=== PATIENT | female | born 1975 | race Two or more races ===

== ENCOUNTER 2018-08-26 22:26 | Inpatient (IN) | payer MEDICAID, OTHER ==
[~2018-08-26] VITALS: Ht 157.5 cm; Wt 85.6 kg
[~2018-08-26 22:26] MED LIST: GLIM1TAB2 PO; LEVO50TA5 PO; LOVA20TA2 PO; METF10002 PO
--- NOTE | 2018-08-26 23:06 | NUR ---
assessment made. ERP at bedside.
[2018-08-26] MEDS ORDERED: MORPHINE SULFATE 4 MG/ML, 1ML IVPush PRN (23:30)
[2018-08-26] MEDS ORDERED: ONDANSETRON 2MG/ML, 2ML IVPush ONE (23:30)
[2018-08-26] MEDS ORDERED: SODIUM CHLORIDE 0.9% 1,000ML IVBOLUS ONE (23:30)
[2018-08-26] MEDS ORDERED: SODIUM CHLORIDE FLUSH 10ML SYR IVF ONE (23:30)
[2018-08-26] MEDS ORDERED: MORPHINE SULFATE 4 MG/ML, 1ML ONE (23:37)
[2018-08-26] MEDS ORDERED: ONDANSETRON 2MG/ML, 2ML ONE (23:37)
[2018-08-27] LABS: BASOPHILS # (AUTO) 0.03 x10^3/uL (0-0.1); BASOPHILS % (AUTO) 0 % (0-1); EOSINOPHILS # (AUTO) 0.21 x10^3/uL (0-0.4); EOSINOPHILS % (AUTO) 3 % (1-7); LYMPHOCYTES # (AUTO) 2.53 x10^3/uL (1-3.4); LYMPHOCYTES % (AUTO) 37 % (22-44); MD NO; MEAN CORPUSCULAR HEMOGLOBIN 32.2 pg (27.0-34.8); MEAN CORPUSCULAR HGB CONC 34.9 g/dL (32.4-35.8); MEAN CORPUSCULAR VOLUME 92.3 fL (80-100); MEAN PLATELET VOLUME 9.1 fL (7.4-10.4); MONOCYTES # (AUTO) 0.35 x10^3/uL (0.2-0.8); MONOCYTES % (AUTO) 5 % (2-9); NEUTROPHILS # (AUTO) 3.73 x10^3/uL (1.8-6.8); NEUTROPHILS % (AUTO) 54 % (42-75); PLATELET COUNT 349 x10^3/uL (130-400); RED BLOOD COUNT 4.61 x10^6/uL (3.82-5.3); RED CELL DISTRIBUTION WIDTH 12.8 % (9.6-15.2)
--- NOTE | 2018-08-27 | NUR ---
IV Placed. blood drawn, urine sample obtained and sent to lab. medicated for pain and nausea. IVF hung.
[2018-08-27 00:06] LABS: MICROSCOPIC NOT IND
[2018-08-27 00:07] LABS: ALANINE AMINOTRANSFERASE 21 U/L (12-78); ALBUMIN 3.6 g/dL (3.4-5.0); ANION GAP 11 mmol/L (5-15); CALCIUM 8.5 mg/dL (8.5-10.1); CHLORIDE 102 mmol/L (98-107)
[2018-08-27 00:09] LABS: CULTURE INDICATED? NO
[2018-08-27 00:10] LABS: ALKALINE PHOSPHATASE 186 U/L (45-117); BILIRUBIN,TOTAL 0.3 mg/dL (0.2-1.0); CREATININE 0.85 mg/dL (0.55-1.02); TOTAL PROTEIN 7.3 g/dL (6.4-8.2)
[2018-08-27] MEDS ORDERED: INSU100V13 SC (00:12)
[2018-08-27] MEDS ORDERED: GABA-826 PO (00:12)
[2018-08-27] MEDS ORDERED: LISI-170 PO (00:12)
[2018-08-27] MEDS ORDERED: INSULIN REGULAR 100 UNITS/ML, 3ML VIAL SQ-INSULIN ONE (00:23)
[2018-08-27 00:30] LABS: ACETONE, SERUM Negative (Negative)
--- NOTE | 2018-08-27 00:53 | NUR ---
TASK RN: PT MEDICATED PER EMAR FOR HYPERGLYCEMIA. PER ERP, SECOND LITER NS HUNG. BP/SPO2/ECG MONITORING IN PLACE. NSR ON MONITOR, HR 90'S. FAMILY AT BEDSIDE. CALL LIGHT W/IN REACH.
[2018-08-27] MEDS ORDERED: SODIUM CHLORIDE 0.9% 1,000ML IVBOLUS ONE (01:30)
--- NOTE | 2018-08-27 02:02 | NUR ---
ambulated to bathroom without difficulty.
--- NOTE | 2018-08-27 02:24 | NUR ---
FS-294 mg /dl. bed assigned. report to MICAH Gray.
[2018-08-27 02:45] VITALS: BP 104/60
[2018-08-27 03:51] VITALS: BP 98/65
[2018-08-27] MEDS ORDERED: hydrALAzine 20 MG/ML, 1ML IVPush PRN (05:30)
[2018-08-27] MEDS ORDERED: ACETAMINOPHEN 325 MG TABLET PO PRN (05:30)
[2018-08-27] MEDS ORDERED: ONDANSETRON ODT 4 MG PO PRN (05:30)
[2018-08-27] MEDS ORDERED: ONDANSETRON 2MG/ML, 2ML IVPush PRN (05:30)
[2018-08-27] MEDS ORDERED: KETOROLAC 30 MG/1 ML IV PRN (05:30)
[2018-08-27] MEDS ORDERED: ASA/APAP/ CAFFEINE TABLET PO PRN (05:30)
[2018-08-27] MEDS ORDERED: BUTALB/APAP/CAFFEINE 50MG/325MG/40MG PO PRN (05:30)
[2018-08-27] MEDS ORDERED: SUMATRIPTAN 25 MG TABLET PO PRN (05:30)
[2018-08-27] MEDS: SODIUM CHLORIDE 0.9% 1,000 ML IV SCH ×3 (06:07→18:35)
[2018-08-27] MEDS: HEPARIN 5,000 UNITS/ML, 1ML SQ SCH ×3 (06:08→22:52)
[2018-08-27] MEDS: LEVOTHYROXINE 50 MCG TABLET PO SCH (06:08)
[2018-08-27 07:09] VITALS: BP 102/70
[2018-08-27] MEDS: INSULIN LISPRO 100 UNITS/ML, PEN SQ-INSULIN SCH ×4 (07:53→22:53)
[2018-08-27] MEDS: LISINOPRIL 20 MG TABLET PO SCH (07:54)
[2018-08-27] MEDS: GABAPENTIN 100 MG CAPSULE PO SCH ×2 (07:54→22:53)
[2018-08-27] MEDS: INSULIN GLARGINE 100 UNITS/ML, PEN SQ-INSULIN SCH (07:54)
[2018-08-27 13:30] VITALS: BP 95/58
[2018-08-27 21:02] VITALS: BP 103/71
[2018-08-28] MEDS: SODIUM CHLORIDE 0.9% 1,000 ML IV SCH ×4 (01:36→22:47)
[2018-08-28 02:00] VITALS: BP 109/71
[2018-08-28] MEDS: LEVOTHYROXINE 50 MCG TABLET PO SCH (06:00)
[2018-08-28 06:29] LABS: CHLORIDE 111 mmol/L (98-107)
[2018-08-28] MEDS ORDERED: LEVOTHYROXINE 25 MCG TABLET ONE (06:37)
[2018-08-28] MEDS: HEPARIN 5,000 UNITS/ML, 1ML SQ SCH ×3 (06:40→22:46)
[2018-08-28 06:47] LABS: ANION GAP 10 mmol/L (5-15); CALCIUM 7.3 mg/dL (8.5-10.1); CREATININE 0.47 mg/dL (0.55-1.02)
[2018-08-28] MEDS: INSULIN LISPRO 100 UNITS/ML, PEN SQ-INSULIN SCH ×4 (07:41→22:45)
[2018-08-28 08:24] VITALS: BP 101/67
[2018-08-28] MEDS: GABAPENTIN 100 MG CAPSULE PO SCH ×2 (08:29→22:44)
[2018-08-28] MEDS: LISINOPRIL 20 MG TABLET PO SCH (08:30)
[2018-08-28] MEDS: INSULIN GLARGINE 100 UNITS/ML, PEN SQ-INSULIN SCH (09:29)
[2018-08-28 13:10] VITALS: BP 106/72
[2018-08-28] MEDS: KETOROLAC 30 MG/1 ML IVPush PRN (13:51)
[2018-08-28] MEDS: METOCLOPRAMIDE 5 MG/ML, 2ML IVPush SCH ×2 (16:41→22:44)
[2018-08-28] MEDS: POTASSIUM CHLORIDE 20 MEQ TAB.ER.PRT PO SCH (17:31)
[2018-08-28 19:18] VITALS: BP 108/74
[2018-08-29 02:41] VITALS: BP 101/68
[2018-08-29] MEDS: LEVOTHYROXINE 50 MCG TABLET PO SCH (06:00)
[2018-08-29] MEDS ORDERED: LEVOTHYROXINE 25 MCG TABLET ONE (06:13)
[2018-08-29 06:26] LABS: ALBUMIN 2.5 g/dL (3.4-5.0); ANION GAP 7 mmol/L (5-15); CALCIUM 7.3 mg/dL (8.5-10.1); CHLORIDE 113 mmol/L (98-107)
[2018-08-29] MEDS: SODIUM CHLORIDE 0.9% 1,000 ML IV SCH ×3 (06:26→21:18)
[2018-08-29 06:27] LABS: CREATININE 0.33 mg/dL (0.55-1.02)
[2018-08-29] MEDS: HEPARIN 5,000 UNITS/ML, 1ML SQ SCH ×3 (06:27→21:34)
[2018-08-29] MEDS: METOCLOPRAMIDE 5 MG/ML, 2ML IVPush SCH (06:28)
[2018-08-29] MEDS: INSULIN LISPRO 100 UNITS/ML, PEN SQ-INSULIN SCH ×4 (06:35→21:00)
[2018-08-29 07:12] VITALS: BP 121/82
[2018-08-29] MEDS: INSULIN GLARGINE 100 UNITS/ML, PEN SQ-INSULIN SCH (08:35)
[2018-08-29] MEDS: POTASSIUM CHLORIDE 20 MEQ TAB.ER.PRT PO SCH ×2 (08:35→17:00)
[2018-08-29] MEDS: GABAPENTIN 100 MG CAPSULE PO SCH ×2 (08:35→21:18)
[2018-08-29] MEDS: LISINOPRIL 20 MG TABLET PO SCH (08:35)
[2018-08-29] MEDS ORDERED: KETOROLAC 30 MG/1 ML IVPush PRN (09:00)
[2018-08-29] MEDS ORDERED: LIDOCAINE-MPF 1%, 5ML ONE (09:52)
[2018-08-29 11:31] LABS: GLUCOSE, CSF 87 mg/dL (40-80); TOTAL PROTEIN,CSF 71 mg/dL (15-45)
[2018-08-29 16:25] VITALS: BP 114/74
[2018-08-29] MEDS: METOCLOPRAMIDE 5 MG/ML, 2ML IVPush PRN (16:29)
[2018-08-29 19:52] VITALS: BP 108/72
[2018-08-29] MEDS: KETOROLAC 30 MG/1 ML IVPush PRN (21:19)
[2018-08-30 01:57] VITALS: BP 110/69
[2018-08-30] MEDS: SODIUM CHLORIDE 0.9% 1,000 ML IV SCH ×2 (04:05→13:08)
[2018-08-30] MEDS: METOCLOPRAMIDE 5 MG/ML, 2ML IVPush PRN (04:41)
[2018-08-30 05:35] LABS: HCT (SEDRATE) 37.7 % (34.6-47.8)
[2018-08-30 05:37] LABS: BASOPHILS # (AUTO) 0.02 x10^3/uL (0-0.1); BASOPHILS % (AUTO) 0 % (0-1); EOSINOPHILS # (AUTO) 0.12 x10^3/uL (0-0.4); EOSINOPHILS % (AUTO) 2 % (1-7); LYMPHOCYTES % (AUTO) 35 % (22-44); MD NO; MEAN CORPUSCULAR HEMOGLOBIN 31.8 pg (27.0-34.8); MEAN CORPUSCULAR HGB CONC 34.2 g/dL (32.4-35.8); MEAN CORPUSCULAR VOLUME 92.9 fL (80-100); MEAN PLATELET VOLUME 8.3 fL (7.4-10.4); MONOCYTES # (AUTO) 0.36 x10^3/uL (0.2-0.8); MONOCYTES % (AUTO) 6 % (2-9); NEUTROPHILS # (AUTO) 3.18 x10^3/uL (1.8-6.8); NEUTROPHILS % (AUTO) 56 % (42-75); PLATELET COUNT 276 x10^3/uL (130-400); RED BLOOD COUNT 4.09 x10^6/uL (3.82-5.3); RED CELL DISTRIBUTION WIDTH 12.4 % (9.6-15.2)
[2018-08-30 05:41] LABS: ALBUMIN 2.6 g/dL (3.4-5.0); ANION GAP 6 mmol/L (5-15); CALCIUM 7.5 mg/dL (8.5-10.1); CHLORIDE 113 mmol/L (98-107); CREATININE 0.44 mg/dL (0.55-1.02)
[2018-08-30] MEDS: HEPARIN 5,000 UNITS/ML, 1ML SQ SCH (05:59)
[2018-08-30] MEDS: LEVOTHYROXINE 50 MCG TABLET PO SCH (05:59)
[2018-08-30] MEDS: INSULIN LISPRO 100 UNITS/ML, PEN SQ-INSULIN SCH ×2 (07:29→11:36)
[2018-08-30 07:50] VITALS: BP 110/73
[2018-08-30] MEDS: GABAPENTIN 100 MG CAPSULE PO SCH (09:31)
[2018-08-30] MEDS: LISINOPRIL 20 MG TABLET PO SCH (09:31)
[2018-08-30] MEDS: POTASSIUM CHLORIDE 20 MEQ TAB.ER.PRT PO SCH (09:32)
[2018-08-30] MEDS: INSULIN GLARGINE 100 UNITS/ML, PEN SQ-INSULIN SCH (09:33)
[2018-08-30] MEDS ORDERED: KETO10TA PO (10:39)
[2018-08-30] MEDS ORDERED: ONDA4TAB13 PO (10:39)
[2018-08-30 13:11] VITALS: BP 101/71
== END 2018-08-30 13:35 | disposition home or self-care (01) | DRG 103 ==
LOC: ED 08-27 00:12 → EDIP 08-27 02:01 → 4NOR 08-27 02:54 → DCLOUNGE 08-30 13:21
PROVIDERS: ADMIT Hospitalist; ATTEND Hospitalist
PROC: 009U3ZX Drainage of Spinal Canal, Percutaneous Approach, Diagnostic (ICD-10-PCS; principal; 2018-08-29)
PROC: B01B1ZZ Fluoroscopy of Spinal Cord using Low Osmolar Contrast (ICD-10-PCS; 2018-08-29)
DX: R51 Headache (principal); E87.2 Acidosis; R11.2 Nausea with vomiting, unspecified; E11.65 Type 2 diabetes mellitus with hyperglycemia; E03.9 Hypothyroidism, unspecified; Z79.4 Long term (current) use of insulin; Z90.49 Acquired absence of other specified parts of digestive tract
CPT/HCPCS: 36415; 62270; 70450; 71045; 77002; 80048; 80053; 81003; 82010; 82040; 82945; 82962; 83605; 83735; 84100; 84157; 84443; 85025; 85651; 87070; 87205; 87252; 89051; 96361; 96372; 96374; 96375; 99285; G0378; J1644; J1885; J2405; J1815; J2765; J7030

== ENCOUNTER 2019-04-05 20:07 | Emergency (ER) | payer MEDICAID, OTHER ==
[~2019-04-05] VITALS: Ht 157.5 cm; Wt 79.7 kg
[2019-04-05 23:02] VITALS: BP 106/74
== END 2019-04-05 23:47 | disposition home or self-care (01) ==
LOC: ED 21:24
DX: N76.4 Abscess of vulva (principal); E11.65 Type 2 diabetes mellitus with hyperglycemia; E03.9 Hypothyroidism, unspecified; E78.5 Hyperlipidemia, unspecified
CPT/HCPCS: 36415; 56405; 80053; 81003; 82010; 82962; 85025; 96374; 96375; 99284; J1170; J1815

== ENCOUNTER 2019-04-07 10:11 | Emergency (ER) | payer MEDICAID, OTHER ==
[~2019-04-07] VITALS: Ht 154.9 cm; Wt 78.3 kg
[2019-04-07 10:12] VITALS: BP 117/87
== END 2019-04-07 11:43 | disposition home or self-care (01) ==
LOC: ED 11:20
DX: N76.4 Abscess of vulva (principal); E11.65 Type 2 diabetes mellitus with hyperglycemia; E78.5 Hyperlipidemia, unspecified; E03.9 Hypothyroidism, unspecified
CPT/HCPCS: 82962; 96372; 99283

== ENCOUNTER 2019-04-09 10:14 | Emergency (ER) | payer MEDICAID, OTHER ==
[~2019-04-09] VITALS: Ht 157.5 cm; Wt 79.2 kg
[2019-04-09 10:29] VITALS: BP 108/77
== END 2019-04-09 11:37 | disposition home or self-care (01) ==
LOC: ED 11:26
DX: L02.416 Cutaneous abscess of left lower limb (principal); E03.9 Hypothyroidism, unspecified
CPT/HCPCS: 99282

== ENCOUNTER 2019-04-10 20:53 | Emergency (ER) | payer MEDICAID, OTHER ==
[~2019-04-10] VITALS: Ht 157.5 cm; Wt 80.0 kg
[2019-04-11 01:27] VITALS: BP 112/69
== END 2019-04-11 01:31 | disposition home or self-care (01) ==
LOC: ED 04-11 01:25
DX: R42 Dizziness and giddiness (principal); R07.89 Other chest pain; E78.5 Hyperlipidemia, unspecified; E11.65 Type 2 diabetes mellitus with hyperglycemia; E03.9 Hypothyroidism, unspecified
CPT/HCPCS: 36415; 71045; 80053; 82010; 82803; 82962; 83930; 84484; 84703; 85025; 93005; 99284

== ENCOUNTER 2019-10-20 20:17 | Emergency (ER) | payer SELFPAY ==
[~2019-10-20] VITALS: Ht 157.5 cm; Wt 79.7 kg
[~2019-10-20 20:17] MED LIST changes: +GABA-826 PO; -GLIM1TAB2 PO; +GLIM1TAB7 PO; +INSU100V13 SC; +KETO10TA PO; +LISI-170 PO; +ONDA4TAB13 PO
--- NOTE | 2019-10-20 21:12 | NUR ---
MANAGER PRESENTATION AT BEDSIDE
[2019-10-20] MEDS ORDERED: ALBU0.63 NEB (21:17)
--- NOTE | 2019-10-20 21:21 | NUR ---
PT RESTING ON GURNEY, MONITORS APPLIED, PROVIDED PT WITH WARM BLANKET, SIDERAILS UP X2, CALL LIGHT WITHIN REACH. AWAITING LAB RESULTS
[2019-10-20 21:29] LABS: BASOPHILS # (AUTO) 0.03 x10^3/uL (0-0.1); BASOPHILS % (AUTO) 0 % (0-1); EOSINOPHILS # (AUTO) 0.16 x10^3/uL (0-0.4); EOSINOPHILS % (AUTO) 2 % (1-7); LYMPHOCYTES # (AUTO) 2.19 x10^3/uL (1-3.4); LYMPHOCYTES % (AUTO) 33 % (22-44); MD NO; MEAN CORPUSCULAR HEMOGLOBIN 31.7 pg (27.0-34.8); MEAN CORPUSCULAR HGB CONC 34.5 g/dL (32.4-35.8); MEAN PLATELET VOLUME 8.9 fL (7.4-10.4); MONOCYTES # (AUTO) 0.35 x10^3/uL (0.2-0.8); MONOCYTES % (AUTO) 5 % (2-9); NEUTROPHILS # (AUTO) 3.96 x10^3/uL (1.8-6.8); NEUTROPHILS % (AUTO) 59 % (42-75); PLATELET COUNT 337 x10^3/uL (130-400); RED CELL DISTRIBUTION WIDTH 12.6 % (9.6-15.2)
[2019-10-20 21:30] LABS: ANION GAP 11 mmol/L (5-15); CALCIUM 8.5 mg/dL (8.5-10.1); CHLORIDE 102 mmol/L (98-107); CREATININE 1.02 mg/dL (0.55-1.02)
--- NOTE | 2019-10-20 21:39 | NUR ---
MELANIE FROM LAB ON TELEPHONE NOTIFIED PT'S LUCOSE CRITICAL VALUE-524, ERP UPDATED AND CURRENTLY AT PT'S BEDSIDE FOR RECHECK. IV SITE STARTED.
[2019-10-20 21:52] LABS: TROPONIN I < 0.015 ng/mL (0.000-0.045)
[2019-10-20] MEDS ORDERED: MORPHINE SULFATE 4 MG/ML, 1ML ONE (21:53)
[2019-10-20] MEDS ORDERED: ONDANSETRON 2MG/ML, 2ML ONE (21:53)
[2019-10-20] MEDS ORDERED: INSULIN SINGLE DOSE, ER ONE ×2 (21:55→23:13)
[2019-10-20] MEDS ORDERED: SODIUM CHLORIDE 0.9% 1,000ML IVBOLUS ONE ×2 (22:00)
[2019-10-20] MEDS ORDERED: INSULIN REGULAR 100 UNITS/ML, 3ML VIAL IVPush ONE ×2 (22:00→23:30)
[2019-10-20] MEDS ORDERED: ONDANSETRON 2MG/ML, 2ML IVPush ONE (22:00)
[2019-10-20] MEDS ORDERED: MORPHINE SULFATE 4 MG/ML, 1ML IVPush PRN (22:00)
--- NOTE | 2019-10-20 22:01 | NUR ---
PT MEDICATED PER MAR
[2019-10-20 22:20] LABS: T4 (THYROXINE) 10.5 mcg/dL (4.8-13.9)
--- NOTE | 2019-10-20 22:33 | NUR ---
PT UP TO RR WITH STEADY GAIT, PROVIDED PT WITH URINE CUP
--- NOTE | 2019-10-20 22:40 | NUR ---
URINE SAMPLE SENT
[2019-10-20 22:49] LABS: MICROSCOPIC NOT IND
[2019-10-20 23:01] LABS: CULTURE INDICATED? NO
[2019-10-20 23:17] VITALS: BP 133/80
--- NOTE | 2019-10-20 23:17 | NUR ---
ERP UPDATED PT'S RECHECK FSBS-337, ORDER RECEIVED FOR ADDITIONAL INSULIN. PT MEDICATED PER MAR
--- NOTE | 2019-10-20 23:45 | NUR ---
ERP UPDATED PT'S FSBS-296, ORDER RECEIVED PT OK FOR D/C HOME
== END 2019-10-21 | disposition home or self-care (01) ==
LOC: ED 23:54
DX: R07.2 Precordial pain (principal); E11.65 Type 2 diabetes mellitus with hyperglycemia; E03.9 Hypothyroidism, unspecified; E78.5 Hyperlipidemia, unspecified; R11.2 Nausea with vomiting, unspecified
CPT/HCPCS: 36415; 71046; 80048; 81003; 82962; 83880; 84436; 84443; 84484; 84703; 85025; 85379; 93005; 96361; 96374; 96375; 96376; 99285; J1815; J2270; J2405; J7030

== ENCOUNTER 2019-10-22 15:28 | Inpatient (IN) | payer OTHER ==
[~2019-10-22] VITALS: Ht 157.5 cm; Wt 82.3 kg
[~2019-10-22 15:28] MED LIST changes: +ALBU0.63 NEB
--- NOTE | 2019-10-22 15:41 | NUR ---
PT CODE 250 IN [facility]. PT WITH SYNCOPAL EPISODE IN [facility], PT LOWERED TO GROUND. PT STRAIGHT BACK TO 39. PIV INITIATED, EKG COMPLETED. PT TO BP, CONT PULSE OX, CARD MONITOR. FSBG OBTAINED 325 READING. PER FAMILY PT RECIEVED A STRESSFUL CALL FROM SON IN [place], PT THEN BEGAN TO FEEL LIKE HER BLOOD SUGARS WERE ELEVATING RN SURGICAL.
[2019-10-22] MEDS ORDERED: ONDANSETRON 2MG/ML, 2ML ONE (15:53)
[2019-10-22] MEDS ORDERED: ONDANSETRON 2MG/ML, 2ML IVPush ONE (16:00)
[2019-10-22] MEDS ORDERED: SODIUM CHLORIDE 0.9%, 500ML IVBOLUS ONE (16:00)
[2019-10-22] MEDS ORDERED: SODIUM CHLORIDE FLUSH 10ML SYR IVF ONE (16:00)
[2019-10-22 16:20] LABS: BASOPHILS # (AUTO) 0.03 x10^3/uL (0-0.1); BASOPHILS % (AUTO) 0 % (0-1); EOSINOPHILS # (AUTO) 0.08 x10^3/uL (0-0.4); EOSINOPHILS % (AUTO) 1 % (1-7); LYMPHOCYTES # (AUTO) 2.06 x10^3/uL (1-3.4); LYMPHOCYTES % (AUTO) 27 % (22-44); MD NO; MEAN CORPUSCULAR HEMOGLOBIN 31.6 pg (27.0-34.8); MEAN CORPUSCULAR HGB CONC 34.3 g/dL (32.4-35.8); MEAN CORPUSCULAR VOLUME 92.3 fL (80-100); MEAN PLATELET VOLUME 8.9 fL (7.4-10.4); MONOCYTES # (AUTO) 0.29 x10^3/uL (0.2-0.8); MONOCYTES % (AUTO) 4 % (2-9); NEUTROPHILS # (AUTO) 5.25 x10^3/uL (1.8-6.8); NEUTROPHILS % (AUTO) 68 % (42-75); PLATELET COUNT 319 x10^3/uL (130-400); RED BLOOD COUNT 4.86 x10^6/uL (3.82-5.3); RED CELL DISTRIBUTION WIDTH 12.8 % (9.6-15.2)
[2019-10-22 16:23] LABS: ALBUMIN 3.5 g/dL (3.4-5.0); ANION GAP 12 mmol/L (5-15); CALCIUM 8.7 mg/dL (8.5-10.1); CHLORIDE 106 mmol/L (98-107)
[2019-10-22 16:26] LABS: ACETONE, SERUM Large (80mg/dL) (Negative)
[2019-10-22 16:30] LABS: ALANINE AMINOTRANSFERASE 24 U/L (12-78); ALKALINE PHOSPHATASE 128 U/L (45-117); BILIRUBIN,TOTAL 0.5 mg/dL (0.2-1.0); CREATININE 0.83 mg/dL (0.55-1.02); TOTAL PROTEIN 8.1 g/dL (6.4-8.2)
--- NOTE | 2019-10-22 16:55 | NUR ---
PT MEDICATED PER OCTARUNA IN TO UPDATE PT ON POC, PT TO BE ADMITTED
[2019-10-22] MEDS ORDERED: INSULIN REGULAR 100 UNITS/ML, 3ML VIAL SQ-INSULIN ONE (17:00)
[2019-10-22] MEDS ORDERED: INSULIN SINGLE DOSE, ER ONE (17:03)
[2019-10-22] MEDS ORDERED: hydrALAzine 20 MG/ML, 1ML IVPush PRN (17:30)
[2019-10-22] MEDS ORDERED: KETOROLAC 30 MG/1 ML IV PRN (17:30)
[2019-10-22] MEDS ORDERED: DEXTROSE 50%, 50ML SYRINGE IVPush PRN (17:30)
[2019-10-22] MEDS ORDERED: DEXTROSE 4 GM TAB.CHEW PO PRN (17:30)
[2019-10-22] MEDS ORDERED: GLUCAGON 1 MG IM PRN (17:30)
[2019-10-22] MEDS ORDERED: morphine SULFATE 10 MG/ML, 1ML IVPush PRN (17:30)
[2019-10-22] MEDS ORDERED: ONDANSETRON ODT 4 MG PO PRN (17:30)
[2019-10-22] MEDS ORDERED: ONDANSETRON 2MG/ML, 2ML IVPush PRN (17:30)
[2019-10-22] MEDS: NEUTRA PHOS K 250 MG TABLET PO SCH ×2 (21:00→21:19)
[2019-10-22] MEDS: ENOXAPARIN 40 MG/0.4 ML SQ SCH (21:19)
[2019-10-22] MEDS: INSULIN GLARGINE 100 UNITS/ML, PEN SQ-INSULIN SCH (21:20)
[2019-10-22] MEDS: INSULIN LISPRO 100 UNITS/ML, PEN SQ-INSULIN SCH (21:20)
[2019-10-22] MEDS: NS + 20MEQ KCL 1,000 ML IV SCH (21:20)
[2019-10-22 22:31] LABS: TROPONIN I < 0.015 ng/mL (0.000-0.045)
[2019-10-22] MEDS: SODIUM CHLORIDE FLUSH 10ML SYR IVF SCH (22:45)
[2019-10-22 22:46] VITALS: BP 117/78
[2019-10-23 01:52] VITALS: BP 104/71
[2019-10-23] MEDS: NS + 20MEQ KCL 1,000 ML IV SCH ×2 (05:32→14:40)
[2019-10-23] MEDS: LEVOTHYROXINE 50 MCG TABLET PO SCH (05:32)
[2019-10-23 05:41] LABS: BASOPHILS # (AUTO) 0.03 x10^3/uL (0-0.1); BASOPHILS % (AUTO) 1 % (0-1); EOSINOPHILS # (AUTO) 0.16 x10^3/uL (0-0.4); EOSINOPHILS % (AUTO) 3 % (1-7); LYMPHOCYTES # (AUTO) 1.84 x10^3/uL (1-3.4); LYMPHOCYTES % (AUTO) 30 % (22-44); MD NO; MEAN CORPUSCULAR HEMOGLOBIN 31.8 pg (27.0-34.8); MEAN CORPUSCULAR HGB CONC 34.4 g/dL (32.4-35.8); MEAN CORPUSCULAR VOLUME 92.2 fL (80-100); MONOCYTES # (AUTO) 0.39 x10^3/uL (0.2-0.8); MONOCYTES % (AUTO) 6 % (2-9); NEUTROPHILS # (AUTO) 3.76 x10^3/uL (1.8-6.8); NEUTROPHILS % (AUTO) 61 % (42-75); PLATELET COUNT 268 x10^3/uL (130-400); RED CELL DISTRIBUTION WIDTH 13.1 % (9.6-15.2)
[2019-10-23 05:57] LABS: ANION GAP 7 mmol/L (5-15); CALCIUM 7.8 mg/dL (8.5-10.1); CHLORIDE 114 mmol/L (98-107); CREATININE 0.66 mg/dL (0.55-1.02)
[2019-10-23 06:01] LABS: TROPONIN I < 0.015 ng/mL (0.000-0.045)
[2019-10-23 07:39] VITALS: BP 102/71
[2019-10-23] MEDS: SODIUM CHLORIDE FLUSH 10ML SYR IVF SCH ×2 (08:21→21:00)
[2019-10-23] MEDS: INSULIN LISPRO 100 UNITS/ML, PEN SQ-INSULIN SCH ×4 (08:22→21:03)
[2019-10-23 08:37] LABS: FREE T4 (FREE THYROXINE) 1.08 ng/dL (0.76-1.46)
[2019-10-23 13:50] VITALS: BP 145/84
[2019-10-23 19:57] VITALS: BP 110/71
[2019-10-23] MEDS: ENOXAPARIN 40 MG/0.4 ML SQ SCH (21:03)
[2019-10-23] MEDS: INSULIN GLARGINE 100 UNITS/ML, PEN SQ-INSULIN SCH (21:04)
[2019-10-24] MEDS: NS + 20MEQ KCL 1,000 ML IV SCH ×2 (00:01→07:40)
[2019-10-24 00:41] VITALS: BP 105/72
[2019-10-24] MEDS ORDERED: THYROID 30 MG TABLET PO SCH (06:00)
[2019-10-24 06:27] LABS: BASOPHILS # (AUTO) 0.04 x10^3/uL (0-0.1); BASOPHILS % (AUTO) 1 % (0-1); EOSINOPHILS # (AUTO) 0.16 x10^3/uL (0-0.4); EOSINOPHILS % (AUTO) 3 % (1-7); LYMPHOCYTES % (AUTO) 40 % (22-44); MD NO; MEAN CORPUSCULAR HEMOGLOBIN 31.9 pg (27.0-34.8); MEAN CORPUSCULAR HGB CONC 34.2 g/dL (32.4-35.8); MEAN CORPUSCULAR VOLUME 93.3 fL (80-100); MEAN PLATELET VOLUME 8.3 fL (7.4-10.4); MONOCYTES % (AUTO) 5 % (2-9); NEUTROPHILS # (AUTO) 2.96 x10^3/uL (1.8-6.8); NEUTROPHILS % (AUTO) 51 % (42-75); PLATELET COUNT 287 x10^3/uL (130-400)
[2019-10-24] MEDS: ACETAMINOPHEN 325 MG TABLET PO PRN ×2 (06:29→11:54)
[2019-10-24] MEDS: LEVOTHYROXINE 50 MCG TABLET PO SCH (06:29)
[2019-10-24 06:31] LABS: ALBUMIN 2.8 g/dL (3.4-5.0); ANION GAP 8 mmol/L (5-15); CALCIUM 8.1 mg/dL (8.5-10.1); CHLORIDE 113 mmol/L (98-107)
[2019-10-24 06:33] LABS: CREATININE 0.53 mg/dL (0.55-1.02)
[2019-10-24 07:04] VITALS: BP 111/73
[2019-10-24] MEDS: INSULIN LISPRO 100 UNITS/ML, PEN SQ-INSULIN SCH ×2 (07:40→11:54)
[2019-10-24] MEDS ORDERED: CALCIUM GLUCONATE 4.6 MEQ in SODIUM CHLORIDE 0.9% 100 ML IV ONE (08:00)
[2019-10-24] MEDS: SODIUM CHLORIDE FLUSH 10ML SYR IVF SCH (09:28)
[2019-10-24] MEDS ORDERED: INSU100V13 SC (13:16)
== END 2019-10-24 14:24 | disposition home or self-care (01) | DRG 639 ==
LOC: ED 16:56 → EDIP 16:57 → SUATTDRO 17:04 → ED 18:37 → 4WST 18:59 → DCLOUNGE 10-24 14:13
PROVIDERS: ADMIT Hospitalist; ATTEND Family Medicine
DX: E11.10 Type 2 diabetes mellitus with ketoacidosis without coma (principal); E03.9 Hypothyroidism, unspecified; E11.43 Type 2 diabetes mellitus with diabetic autonomic (poly)neuropathy; E86.9 Volume depletion, unspecified; G62.9 Polyneuropathy, unspecified; K59.00 Constipation, unspecified; Z79.4 Long term (current) use of insulin; Z82.5 Family history of asthma and other chronic lower respiratory diseases; Z91.14 Patient's other noncompliance with medication regimen; Z83.3 Family history of diabetes mellitus
CPT/HCPCS: 36415; 74018; 80048; 80053; 80069; 82010; 82607; 82800; 82962; 83036; 83735; 84100; 84439; 84443; 84481; 84484; 85025; 93005; 93306; 96372; 96374; G0378; J0610; J1650; J1885; J2405; J3480; J1815; J2270; J7040

== ENCOUNTER 2019-12-07 22:40 | Emergency (ER) | payer MEDICAID, OTHER ==
[~2019-12-07] VITALS: Ht 157.5 cm; Wt 79.0 kg
--- NOTE | 2019-12-07 23:16 | NUR ---
Patient presents to ER c/o low back pain which she has had for 15 years. Pain has been getting worse. Patient is in NAD. Respirations even and unlabored.
[2019-12-07 23:36] LABS: BASOPHILS # (AUTO) 0.06 x10^3/uL (0-0.1); BASOPHILS % (AUTO) 1 % (0-1); EOSINOPHILS # (AUTO) 0.02 x10^3/uL (0-0.4); EOSINOPHILS % (AUTO) 1 % (1-7); LYMPHOCYTES # (AUTO) 1.39 x10^3/uL (1-3.4); LYMPHOCYTES % (AUTO) 31 % (22-44); MD NO; MEAN CORPUSCULAR HEMOGLOBIN 31.6 pg (27.0-34.8); MEAN CORPUSCULAR HGB CONC 34.5 g/dL (32.4-35.8); MEAN CORPUSCULAR VOLUME 91.6 fL (80-100); MEAN PLATELET VOLUME 8.4 fL (7.4-10.4); MONOCYTES # (AUTO) 0.25 x10^3/uL (0.2-0.8); MONOCYTES % (AUTO) 6 % (2-9); NEUTROPHILS # (AUTO) 2.72 x10^3/uL (1.8-6.8); NEUTROPHILS % (AUTO) 61 % (42-75); PLATELET COUNT 214 x10^3/uL (130-400); RED BLOOD COUNT 4.63 x10^6/uL (3.82-5.3); RED CELL DISTRIBUTION WIDTH 12.4 % (9.6-15.2)
[2019-12-07 23:44] LABS: ALBUMIN 2.9 g/dL (3.4-5.0); ANION GAP 7 mmol/L (5-15); CALCIUM 8.4 mg/dL (8.5-10.1); CHLORIDE 105 mmol/L (98-107)
[2019-12-08 00:45] VITALS: BP 116/76
== END 2019-12-08 00:47 | disposition home or self-care (01) ==
LOC: ED 23:21
DX: J18.1 Lobar pneumonia, unspecified organism (principal); M54.5 Low back pain; E11.9 Type 2 diabetes mellitus without complications; E03.9 Hypothyroidism, unspecified; E78.5 Hyperlipidemia, unspecified; R94.31 Abnormal electrocardiogram [ECG] [EKG]
CPT/HCPCS: 36415; 71045; 80048; 82040; 84703; 85025; 93005

== ENCOUNTER 2020-01-18 02:42 | Emergency (ER) | payer SELFPAY ==
[~2020-01-18] VITALS: Ht 157.5 cm; Wt 78.5 kg
[~2020-01-18 02:42] MED LIST changes: +OXYC-302 PO
[2020-01-18 02:43] VITALS: BP 112/70
[2020-01-18] MEDS ORDERED: SODIUM CHLORIDE FLUSH 10ML SYR IVF ONE (03:00)
[2020-01-18 03:34] LABS: BASOPHILS # (AUTO) 0.05 x10^3/uL (0-0.1); BASOPHILS % (AUTO) 1 % (0-1); EOSINOPHILS % (AUTO) 3 % (1-7); LYMPHOCYTES # (AUTO) 1.82 x10^3/uL (1-3.4); LYMPHOCYTES % (AUTO) 18 % (22-44); MD NO; MEAN CORPUSCULAR HEMOGLOBIN 30.8 pg (27.0-34.8); MEAN CORPUSCULAR HGB CONC 33.4 g/dL (32.4-35.8); MEAN CORPUSCULAR VOLUME 92.1 fL (80-100); MEAN PLATELET VOLUME 7.6 fL (7.4-10.4); MONOCYTES # (AUTO) 0.43 x10^3/uL (0.2-0.8); MONOCYTES % (AUTO) 4 % (2-9); NEUTROPHILS # (AUTO) 7.38 x10^3/uL (1.8-6.8); NEUTROPHILS % (AUTO) 74 % (42-75); PLATELET COUNT 472 x10^3/uL (130-400); RED BLOOD COUNT 4.84 x10^6/uL (3.82-5.3)
[2020-01-18 03:41] LABS: MICROSCOPIC INDICATED
[2020-01-18 03:43] LABS: ALANINE AMINOTRANSFERASE 17 U/L (12-78); ALBUMIN 3.2 g/dL (3.4-5.0); ANION GAP 6 mmol/L (5-15); CALCIUM 9.1 mg/dL (8.5-10.1); CHLORIDE 103 mmol/L (98-107); CREATININE 0.71 mg/dL (0.55-1.02)
--- NOTE | 2020-01-18 03:45 | NUR ---
PT HAD APPENDECTOMY LAST MONDAY. REPORTS SOME REDNESS AND PAIN FROM INCISION SITE. NO FEVER. NO VOMITING. BLOOD DRAWN AND SENT.
[2020-01-18 03:46] LABS: ALKALINE PHOSPHATASE 117 U/L (45-117); BILIRUBIN,TOTAL 0.5 mg/dL (0.2-1.0); TOTAL PROTEIN 8.7 g/dL (6.4-8.2)
== END 2020-01-18 04:08 | disposition home or self-care (01) ==
LOC: ED 03:14
DX: R10.31 Right lower quadrant pain (principal); E11.65 Type 2 diabetes mellitus with hyperglycemia; L03.311 Cellulitis of abdominal wall; E78.5 Hyperlipidemia, unspecified
CPT/HCPCS: 36415; 80053; 81001; 83690; 84703; 85025; 87086; 99283

== ENCOUNTER 2020-01-26 15:42 | Emergency (ER) | payer MEDICAID ==
[~2020-01-26] VITALS: Ht 154.9 cm; Wt 78.4 kg
--- NOTE | 2020-01-26 16:12 | NUR ---
PT C/O INFECTED INCISIONAL WOUND FROM APPY JUST OVER A WEEK AGO. PT WAS ON ORAL ATB FOR INFECTION ALREADY, SERIES COMPLETED. LAST NIGHT, SHE BENT OVER AND HER INCISION RUPTURED, DRAINING PURRULENT FLUID. PT STATES PAIN IS NOW INCREASED TO 8/10. INCISION IN UMBILICUS NOTED TO BE WET, WEEPY, RED, WARM TO THE TOUCH, WITH A HARDENED AREA UNDER THE SKIN. PT PROVIDED WITH WARM BLANKETS, ATTACHED TO MONITORS. DENIES ANY FURTHER NEEDS OR CONCERNS, CALL LIGHT IN REACH.
[2020-01-26] MEDS ORDERED: MORPHINE SULFATE 4 MG/ML, 1ML ONE (16:25)
[2020-01-26] MEDS ORDERED: ONDANSETRON 2MG/ML, 2ML ONE (16:25)
[2020-01-26] MEDS ORDERED: MORPHINE SULFATE 4 MG/ML, 1ML IVPush PRN (16:30)
[2020-01-26] MEDS ORDERED: SODIUM CHLORIDE FLUSH 10ML SYR IVF ONE (16:30)
[2020-01-26] MEDS ORDERED: SODIUM CHLORIDE 0.9% 1,000ML IVBOLUS ONE (16:30)
[2020-01-26] MEDS ORDERED: ONDANSETRON 2MG/ML, 2ML IVPush ONE (16:30)
--- NOTE | 2020-01-26 16:53 | NUR ---
COMPUTER AT BEDSIDE BROKEN. UNABLE TO SCAN MEDICATIONS. WORK ORDER ENTERED FOR COMPUTER
[2020-01-26 17:01] LABS: BASOPHILS # (AUTO) 0.04 x10^3/uL (0-0.1); BASOPHILS % (AUTO) 1 % (0-1); EOSINOPHILS # (AUTO) 0.31 x10^3/uL (0-0.4); EOSINOPHILS % (AUTO) 5 % (1-7); LYMPHOCYTES # (AUTO) 2.07 x10^3/uL (1-3.4); LYMPHOCYTES % (AUTO) 30 % (22-44); MD NO; MEAN CORPUSCULAR HEMOGLOBIN 30.8 pg (27.0-34.8); MEAN CORPUSCULAR HGB CONC 33.2 g/dL (32.4-35.8); MEAN CORPUSCULAR VOLUME 92.8 fL (80-100); MEAN PLATELET VOLUME 7.9 fL (7.4-10.4); MONOCYTES # (AUTO) 0.32 x10^3/uL (0.2-0.8); MONOCYTES % (AUTO) 5 % (2-9); NEUTROPHILS # (AUTO) 4.16 x10^3/uL (1.8-6.8); NEUTROPHILS % (AUTO) 60 % (42-75); PLATELET COUNT 495 x10^3/uL (130-400); RED BLOOD COUNT 4.77 x10^6/uL (3.82-5.3); RED CELL DISTRIBUTION WIDTH 12.7 % (9.6-15.2)
[2020-01-26 17:08] LABS: ALANINE AMINOTRANSFERASE 19 U/L (12-78); ALBUMIN 3.3 g/dL (3.4-5.0); ANION GAP 8 mmol/L (5-15); CALCIUM 9.1 mg/dL (8.5-10.1); CHLORIDE 103 mmol/L (98-107); CREATININE 0.74 mg/dL (0.55-1.02)
[2020-01-26 17:11] LABS: ALKALINE PHOSPHATASE 112 U/L (45-117); BILIRUBIN,TOTAL 0.3 mg/dL (0.2-1.0); TOTAL PROTEIN 8.7 g/dL (6.4-8.2)
[2020-01-26] MEDS ORDERED: OMNIPAQUE 350 MG/ML, 100ML BOTTLE ONE (17:11)
--- NOTE | 2020-01-26 17:17 | NUR ---
PT RESTING IN [facility] WITH CALL LIGHT WITHIN REACH. AWIATING CT SCAN
[2020-01-26 17:43] LABS: MICROSCOPIC INDICATED
--- NOTE | 2020-01-26 18:56 | NUR ---
PT RESTING ON GURNEY, DENIES NEEDS, CALL LIGHT WITHIN REACH
[2020-01-26 19:34] VITALS: BP 117/65
== END 2020-01-26 19:44 | disposition home or self-care (01) ==
LOC: ED 16:39
DX: R10.33 Periumbilical pain (principal); E11.65 Type 2 diabetes mellitus with hyperglycemia; E03.9 Hypothyroidism, unspecified; E78.5 Hyperlipidemia, unspecified; Z90.89 Acquired absence of other organs
CPT/HCPCS: 36415; 74177; 80053; 81001; 83605; 85025; 87086; 96374; 96375; 99285; J2270; J2405; J7030; Q9967; 96361

== ENCOUNTER 2020-08-30 18:01 | Emergency (ER) | payer MEDICAID ==
[~2020-08-30] VITALS: Ht 152.4 cm; Wt 81.1 kg
[2020-08-30] MEDS ORDERED: BUPIVACAINE/PF-EPI 0.25% 1:200K SQ ONE (18:30)
[2020-08-30] MEDS ORDERED: LIDOCAINE-MPF 1%, 5ML INFIL ONE (18:30)
[2020-08-30] MEDS ORDERED: L.E.T SOLUTION TP ONE ×2 (18:30→18:46)
[2020-08-30] MEDS ORDERED: HYDROmorphone 1 MG/ML, 1ML INJ ONE (18:45)
[2020-08-30] MEDS ORDERED: LIDOCAINE-MPF 1%, 5ML ONE (18:45)
[2020-08-30] MEDS ORDERED: BUPIVACAINE 0.25% ONE (18:45)
[2020-08-30] MEDS ORDERED: ONDANSETRON 2MG/ML, 2ML ONE (18:45)
[2020-08-30] MEDS ORDERED: SODIUM CHLORIDE FLUSH 10ML SYR IVF ONE (19:00)
[2020-08-30] MEDS ORDERED: ONDANSETRON 2MG/ML, 2ML IVPush ONE (19:00)
[2020-08-30] MEDS ORDERED: HYDROmorphone 2 MG/ML, 1ML IVPush PRN (19:00)
--- NOTE | 2020-08-30 19:00 | NUR ---
LET APPLIED. PT MEDICATED FOR PAIN VIA IV ORDERED. REPORT TO TED OBRIEN.
[2020-08-30] MEDS ORDERED: SODIUM CHLORIDE 0.9% 1,000ML IVBOLUS ONE (19:30)
[2020-08-30] MEDS ORDERED: NEOSPORIN OINT. PKT 1 PACKET ONE (19:41)
--- NOTE | 2020-08-30 19:51 | NUR ---
TASK RN: WOUND DRESSED PER PROVIDER INSTRUCTIONS. REPORT GIVEN GIVEN TO PRIMARY RN.
--- NOTE | 2020-08-30 20:13 | NUR ---
FS RECHECK 318 MG/DL. PATIENT FOR DISCHARGE.
--- NOTE | 2020-08-30 20:17 | NUR ---
PATIENT DISCHARGED WITH PRESCRIPTION AND INSTRUCTION. VERBALIZED UNDERSTANDING.
[2020-08-30 20:18] VITALS: BP 141/76
== END 2020-08-30 20:23 | disposition home or self-care (01) ==
LOC: ED 18:31
DX: N90.89 Other specified noninflammatory disorders of vulva and perineum (principal); F17.210 Nicotine dependence, cigarettes, uncomplicated; E11.65 Type 2 diabetes mellitus with hyperglycemia; E03.9 Hypothyroidism, unspecified; E78.5 Hyperlipidemia, unspecified; Z90.89 Acquired absence of other organs
CPT/HCPCS: 56405; 82962; 96361; 96372; 96374; 96375; 99284; J1170; J2405; J7030

== ENCOUNTER 2021-01-22 10:56 | Day surgery (SDC) | payer OTHER ==
[2021-01-20 12:30] LABS: BASOPHILS % (AUTO) 1 % (0-1); EOSINOPHILS % (AUTO) 2 % (1-7); LYMPHOCYTES % (AUTO) 28 % (22-44); MEAN CORPUSCULAR HGB CONC 34.3 g/dL (32.4-35.8); MEAN PLATELET VOLUME 8.1 fL (7.4-10.4); MONOCYTES % (AUTO) 4 % (2-9); NEUTROPHILS % (AUTO) 65 % (42-75); PLATELET COUNT 305 x10^3/uL (130-400); RED BLOOD COUNT 4.81 x10^6/uL (3.82-5.3); RED CELL DISTRIBUTION WIDTH 12.7 % (9.6-15.2)
[2021-01-20 12:34] LABS: MD NO
[2021-01-20 12:39] LABS: ALANINE AMINOTRANSFERASE 26 U/L (12-78); ALBUMIN 3.7 g/dL (3.4-5.0); ANION GAP 5 mmol/L (5-15); CALCIUM 8.6 mg/dL (8.5-10.1); CHLORIDE 105 mmol/L (98-107); CREATININE 0.56 mg/dL (0.55-1.02)
[2021-01-20 12:41] LABS: ALKALINE PHOSPHATASE 145 U/L (45-117); BILIRUBIN,TOTAL 0.4 mg/dL (0.2-1.0); TOTAL PROTEIN 8.1 g/dL (6.4-8.2)
[2021-01-20 12:48] LABS: MICROSCOPIC INDICATED
[~2021-01-22] VITALS: Ht 157.5 cm; Wt 79.9 kg
[~2021-01-22 10:56] MED LIST changes: +ALBU8.5H8 INH; +ATOR20TA37 PO; +IBUP-1223 PO; +INSU100I18 SC; +LEVO88TA4 PO; -OXYC-302 PO; +OXYC1TAB14 PO
[2021-01-22] MEDS ORDERED: MIDAZOLAM 1 MG/ML, 2ML ONE (12:05)
[2021-01-22] MEDS ORDERED: FENTANYL PF 250 MCG/5ML ONE (12:05)
[2021-01-22] MEDS ORDERED: PROPOFOL 50 ML ONE (12:09)
[2021-01-22 12:13] VITALS: BP 123/84
[2021-01-22] MEDS ORDERED: CHLORHEXIDINE 15 ML UDC ONE (12:15)
[2021-01-22] MEDS ORDERED: LACTATED RINGERS 1,000 ML IV SCH (12:30)
[2021-01-22] MEDS ORDERED: CHLORHEXIDINE 15 ML UDC PO ONE (12:30)
[2021-01-22 12:37] LABS: HCG UR SG 1.044 (1.003-1.030)
[2021-01-22] MEDS ORDERED: OXYC1TAB14 PO (12:53)
[2021-01-22] MEDS ORDERED: IBUP-1222 PO (12:56)
[2021-01-22] MEDS ORDERED: KETOROLAC 30 MG/1 ML ONE (12:58)
[2021-01-22] MEDS ORDERED: CEFAZOLIN 1,000 MG ONE (12:58)
[2021-01-22] MEDS ORDERED: ONDANSETRON 2MG/ML, 2ML ONE (12:58)
[2021-01-22] MEDS ORDERED: METOCLOPRAMIDE 5 MG/ML, 2ML ONE (12:58)
[2021-01-22] MEDS ORDERED: DEXAMETHASONE 4 MG/ML, 1ML ONE (12:58)
[2021-01-22] MEDS ORDERED: BENZ56AE EXT (12:59)
[2021-01-22] MEDS ORDERED: LIDOCAINE/PF 1%, 30ML ONE (13:18)
[2021-01-22] MEDS ORDERED: BUPIVACAINE/PF-EPI 0.5% 1:200K INFIL ONE (13:23)
[2021-01-22] MEDS ORDERED: LIDOCAINE 1%, 20ML INFIL ONE (13:24)
[2021-01-22] MEDS ORDERED: MEPERIDINE/PF 25MG/0.5ML IVPush PRN (13:30)
[2021-01-22] MEDS ORDERED: METHOCARBAMOL 1,000 MG in DEXTROSE 5% 100 ML IV PRN (13:30)
[2021-01-22] MEDS ORDERED: LORazepam 2 MG/ML, 1ML IVPush PRN (13:30)
[2021-01-22] MEDS ORDERED: ACETAMINOPHEN 325 MG TABLET PO PRN (13:30)
[2021-01-22] MEDS ORDERED: HYDROmorphone 1 MG/ML, 1ML INJ IVPush PRN (13:30)
[2021-01-22] MEDS ORDERED: OXYcodone 5 MG/5 ML ORAL.SOL UDC PO PRN (13:30)
[2021-01-22] MEDS ORDERED: PROMETHAZINE 25 MG/ML, 1ML IVPush PRN (13:30)
[2021-01-22] MEDS ORDERED: hydrALAzine 20 MG/ML, 1ML IV PRN (13:30)
[2021-01-22] MEDS ORDERED: LABETALOL 5MG/ML, 20ML IV PRN (13:30)
[2021-01-22] MEDS ORDERED: ONDANSETRON 2MG/ML, 2ML IVPush PRN (13:30)
[2021-01-22] MEDS ORDERED: EPHEDRINE 50 MG/ML, 1ML IVPush PRN (13:30)
[2021-01-22] MEDS ORDERED: CLIN300C3 BC (13:47)
[2021-01-22] MEDS ORDERED: OXYcodone 5 MG/5 ML ORAL.SOL UDC ONE (14:11)
[2021-01-22] MEDS ORDERED: FENTANYL PF 100 MCG/2ML ONE (14:11)
[2021-01-22] MEDS: FENTANYL PF 100 MCG/2ML IV PRN ×2 (14:14→14:19)
== END 2021-01-22 16:47 | disposition home or self-care (01) ==
LOC: OUT 10:56
PROVIDERS: ATTEND Obstetrics & Gynecology
DX: N75.0 Cyst of Bartholin's gland (principal); E03.9 Hypothyroidism, unspecified; E11.9 Type 2 diabetes mellitus without complications; J45.909 Unspecified asthma, uncomplicated; Z90.49 Acquired absence of other specified parts of digestive tract; Z20.822 Contact with and (suspected) exposure to COVID-19; Z79.4 Long term (current) use of insulin; Z79.890 Hormone replacement therapy; Z79.899 Other long term (current) drug therapy; Z98.51 Tubal ligation status; Z83.3 Family history of diabetes mellitus
CPT/HCPCS: 36415; 56740; 80053; 81001; 81025; 82962; 85025; 88112; 88304; 88305; 93005; J0690; J1100; J1885; J2250; J2405; J2704; J2765; J3010; J7120; U0003; U0005